=== PATIENT | female | born 1985 | race Hispanic/Latino ===

== ENCOUNTER 2017-10-02 15:39 | Emergency (ER) | payer SELFPAY ==
[~2017-10-02] VITALS: Ht 149.9 cm; Wt 57.0 kg
[2017-10-02 16:54] LABS: INFLUENZA A POSITIVE (NONE DETECT); INFLUENZA B NONE DETECTED (NONE DETECT)
[2017-10-02] MEDS ORDERED: TAM75CAP PO (18:26)
[2017-10-02] MEDS ORDERED: PROVENTIL HFA IN (18:26)
[2017-10-02 18:38] VITALS: BP 123/71
== END 2017-10-02 18:38 | disposition home or self-care (01) | DRG 195 ==
LOC: ED 15:39
PROVIDERS: Emergency Medicine
DX: J10.1 Influenza due to other identified influenza virus with other respiratory manifestations (principal); R05 Cough; R50.9 Fever, unspecified; R09.81 Nasal congestion